=== PATIENT | female | born 1950 | race Caucasian/White ===

== ENCOUNTER 2016-04-13 14:25 | Emergency (ER) | payer BC, MEDICARE ==
[~2016-04-13] VITALS: Ht 160 cm; Wt 71.0 kg
[~2016-04-13 14:25] MED LIST: ASPI81TA81; METF500T PO; METO25TA3 PO; MONT10TA2 PO; NORC5TAB PO; PREV30CA11 PO; TRIA1SPR6 EACH NARE; ZOFR4TAB3 SL
[2016-04-13 14:38] VITALS: BP 168/82; PULSE 81; RESP 16; TEMP 98.5; O2SAT 98
[2016-04-13] MEDS ORDERED: METF500T4 PO (14:54)
[2016-04-13] MEDS ORDERED: BENZ100 PO (15:22)
--- NOTE | 2016-04-13 15:23 | PD ---
HPI Chief Complaint: Cold / Flu Symptoms Time Seen by Provider: 15:05 Travel History International Travel<30 days: No Contact w/Intl Traveler<30days: No Traveled to known affect area: No History of Present Illness HPI Patient is a 66-year-old female who presents emergency Department evaluation of cough, congestion. Patient states her symptoms started on , at that time there accompanied by body aches and chills. She states that she feels 50% better than she did when her symptoms started. She reports that the cough continues. She denies any recent tobacco use, diagnosis of COPD. Patient is diabetic. She denies any shortness breath, chest pain, headaches, fevers or nausea, vomiting. PFSH Past Medical History Hx Anticoagulant Therapy: Yes (325 ASA) Arthritis: Yes Atrial Fibrillation: Yes (INTERMITANT) Anxiety: No Depression: Yes Heart Rhythm Problems: Yes (see above has a loop recorder) Cancer: No Cardiac Catheterization: No High Cholesterol: Yes Chemotherapy: No Chest Pain: Yes Congestive Heart Failure: No Cerebrovascular Accident: No Diabetes: Yes Patient Takes Glucophage: Yes Diminished Hearing: No Fibromyalgia: Yes GERD: Yes Genitourinary: Yes Headaches: Yes Hiatal Hernia: No Implanted Vascular Access Dvce: Yes Kidney Stones: Yes Psychiatric: No Reproductive: No Respiratory: No Immunizations Current: Yes Migraines: Yes Radiation Therapy: No Renal Failure: No Thyroid Disease: No Ulcer: No Tetanus Vaccination: Unknown Influenza Vaccination: Yes ?: Not Menopausal: Yes Past Surgical History AICD: No Arteriovenous Shunt: No Body Medical Devices: LOOP RECORDER Cardiac Surgery: Yes (LOOP RECORDER,paratod tumor removed) Cholecystectomy: Yes Coronary Artery Bypass Graft: No Endocrine Surgery: Yes (gallbladder removed) Genitourinary Surgery: Yes (tonsilectomy) Gynecologic Surgery: Yes (hysterectomy) Hysterectomy: Yes Insulin Pump: No Joint Replacement: No Pacemaker: No Tonsillectomy: Yes Other Surgery: Yes (Parotid tumor removal, BIRTHMARK REMOVED LEFT LEG) Social History Alcohol Use: No Tobacco Use: No (1995) Substance Use: No Allergies-Medications (Allergen,Severity, Reaction): Coded Allergies: Biaxin (Verified Allergy, Intermediate, rash, tachycardia, 04/13/16) Levaquin (Verified Allergy, Intermediate, 04/13/16) muscle pain Naprosyn (Verified Allergy, Unknown, 04/13/16) Penicillin (Verified Allergy, Unknown, 04/13/16) Doxycycline (Verified Adverse Reaction, Severe, Body pain, 04/13/16) Dilaudid (Verified Adverse Reaction, Intermediate, ACUTE HEARING LOSS, 04/13) Uncoded Allergies: ceftin (Allergy, Unknown, 11/01/14) Reported Meds & Prescriptions Reported Meds & Active Scripts Active [place] (Hydrocodone-Acetaminophen) 5-325 mg Tab 1 Tab PO Q6H PRN Reported Metformin ER (Metformin HCl) 500 Mg Jojo 500 Mg PO HS With evening meal Nasacort Allergy 24Hr Nasal (Triamcinolone Nasal) 55 Mcg/Act Spr 2 [place] EACH NARE DAILY Aspir-81 (Aspirin) 81 Mg Tabdr 325 DAILY Metoprolol Tartrate 25 Mg Tab 25 Mg PO DAILY Metformin (Metformin HCl) 500 Mg Tab 1,000 Mg PO AM With meals Prevacid (Lansoprazole) 30 Mg Capdr 30 Mg PO BID Physical Exam Narrative GENERAL: Well-nourished, well-developed patient. SKIN: Warm and dry. HEAD: Normocephalic. EYES: No scleral icterus. No injection or drainage. ENT: Mucosa pink and moist. No erythema or exudates. No uvular edema. No uvular , palatal, or tonsillar deviation. Airway patent. Nasal turbinates appear normal without nasal blood, purulent drainage or septal hematoma. Cobblestone appearance posterior pharynx. NECK: Supple, trachea midline. No JVD or lymphadenopathy. CARDIOVASCULAR: Regular rate and rhythm without murmurs, gallops, or rubs. RESPIRATORY: Breath sounds equal bilaterally. No accessory muscle use. No wheezing, rhonchi, or rales noted. No increased work of breathing, no nasal flaring, no retractions. GASTROINTESTINAL: Abdomen soft, non-tender, nondistended. MUSCULOSKELETAL: No cyanosis, or edema. BACK: Nontender without obvious deformity. No CVA tenderness. Data Data Last Documented VS Vital Signs Date Time Temp Pulse Resp B/P Pulse Ox O2 Delivery O2 Flow Rate FiO2 04/13/16 14:48 98 Room Air 04/13/16 14:38 98.5 81 16 168/82 [facility] Medical Decision Making Medical Screen Exam Complete: Yes Emergency Medical Condition: Yes Interpretation(s) Vital Signs Date Time Temp Pulse Resp B/P Pulse Ox O2 Delivery O2 Flow Rate FiO2 04/13/16 14:48 98 Room Air 04/13/16 14:38 98.5 81 16 168/82 98 Differential Diagnosis Bronchitis versus pneumonia versus upper respiratory infection versus other Narrative Course Patient's 66-year-old female who presents emergency for evaluation of cough, congestion. Symptoms have improved since the initiation 3 days ago. Physical examination appears most consistent with a viral upper respiratory infection. Patient is afebrile, well oxygenated on room air, and her vital signs are stable. She is encouraged to continue with symptomatic management. She was encouraged that she is already showing improvement and should feel better within the next 2-3 days. She was encouraged to follow-up with her primary doctor or return to emergency department for any new or worsening symptoms. Patient verbalized understanding of instructions. Patient stable for discharge. Diagnosis Primary Impression: Upper respiratory infection, viral Referrals: Brendan Oleary DO 3 days Patient Instructions: General Instructions, Upper Respiratory Infection (ED) Additional Instructions: Follow-up with your primary doctor Continue symptomatic management Return to emergency department for any new or worsening symptoms Med/Other Pt SpecificInfo: Prescription(s) given Scripts Benzonatate (Tessalon Perles)100 Mg [id number] Mg PO TID PRN (COUGH) #15 CAP Ref 0 Prov:Christine Mancilla 04/13/16 Disposition: 01 DISCHARGE HOME Condition: Stable Christine Mancilla Apr 13, 2016 15:22
== END 2016-04-13 15:35 | disposition home or self-care (01) ==
LOC: PHEFT 14:25
DX: J06.9 Acute upper respiratory infection, unspecified (principal); I48.91 Unspecified atrial fibrillation; E78.00 Pure hypercholesterolemia, unspecified; E11.9 Type 2 diabetes mellitus without complications; M79.7 Fibromyalgia; K21.9 Gastro-esophageal reflux disease without esophagitis; Z87.442 Personal history of urinary calculi; Z79.01 Long term (current) use of anticoagulants
CPT/HCPCS: 99283

== ENCOUNTER 2016-08-02 20:03 | Emergency (ER) | payer MEDICARE, OTHER ==
[~2016-08-02] VITALS: Ht 160 cm; Wt 71.2 kg
[~2016-08-02 20:03] MED LIST changes: +BENZ100 PO; +METF500T4 PO; -MONT10TA2 PO; -ZOFR4TAB3 SL
[2016-08-02 20:14] VITALS: BP 143/71; PULSE 76; RESP 14; TEMP 98; O2SAT 98
[2016-08-02] MEDS ORDERED: ROSU5 PO (20:32)
[2016-08-02] MEDS ORDERED: CLAR10CA3 PO (20:32)
[2016-08-02] MEDS ORDERED: SULF1SOL4 RIGHT EYE (20:40)
--- NOTE | 2016-08-02 20:43 | PD ---
HPI Chief Complaint: Eye Problems/Injury Time Seen by Provider: 18:20 Travel History International Travel<30 days: No Contact w/Intl Traveler<30days: No Traveled to known affect area: No History of Present Illness HPI 66-year-old woman presents to the emergency department with right eye redness and irritation for 1 day. She reports she just come back from visiting her grandchildren who had pinkeye and she believes she contracted it. She reports mild right eye irritation, blurred vision with tearing, and crusting at eyelashes. She denies eye pain, vision loss, flashes or floaters. She denies trauma to the eye. PFSH Past Medical History Hx Anticoagulant Therapy: Yes (325 ASA) Arthritis: Yes Atrial Fibrillation: Yes (INTERMITANT) Anxiety: No Depression: Yes Heart Rhythm Problems: Yes (see above has a loop recorder) Cancer: No Cardiac Catheterization: No High Cholesterol: Yes Chemotherapy: No Chest Pain: Yes Congestive Heart Failure: No Cerebrovascular Accident: No Diabetes: Yes Diminished Hearing: No Fibromyalgia: Yes GERD: Yes Genitourinary: Yes Headaches: Yes Hiatal Hernia: No Implanted Vascular Access Dvce: Yes Kidney Stones: Yes Psychiatric: No Reproductive: No Respiratory: No Immunizations Current: Yes Migraines: Yes Radiation Therapy: No Renal Failure: No Thyroid Disease: No Ulcer: No Menopausal: Yes Past Surgical History AICD: No Arteriovenous Shunt: No Body Medical Devices: LOOP RECORDER Cardiac Surgery: Yes (LOOP RECORDER,paratod tumor removed) Cholecystectomy: Yes Coronary Artery Bypass Graft: No Endocrine Surgery: Yes (gallbladder removed) Genitourinary Surgery: Yes (tonsilectomy) Gynecologic Surgery: Yes (hysterectomy) Hysterectomy: Yes Insulin Pump: No Joint Replacement: No Pacemaker: No Tonsillectomy: Yes Other Surgery: Yes (Parotid tumor removal, BIRTHMARK REMOVED LEFT LEG) Social History Alcohol Use: No Tobacco Use: No (1995) Substance Use: No Allergies-Medications (Allergen,Severity, Reaction): Coded Allergies: Biaxin (Verified Allergy, Intermediate, rash, tachycardia, 08/02/16) Levaquin (Verified Allergy, Intermediate, 08/02/16) muscle pain Naprosyn (Verified Allergy, Unknown, 08/02/16) Penicillin (Verified Allergy, Unknown, 08/02/16) Doxycycline (Verified Adverse Reaction, Severe, Body pain, 08/02/16) Dilaudid (Verified Adverse Reaction, Intermediate, ACUTE HEARING LOSS, ) Uncoded Allergies: ceftin (Allergy, Unknown, 11/01/14) Reported Meds & Prescriptions Reported Meds & Active Scripts Active Tessalon Perles (Benzonatate) 100 Mg Cap 200 Mg PO TID PRN [place] (Hydrocodone-Acetaminophen) 5-325 mg Tab 1 Tab PO Q6H PRN Reported Metformin ER (Metformin HCl) 500 Mg Jojo 500 Mg PO HS With evening meal Nasacort Allergy 24Hr Nasal (Triamcinolone Nasal) 55 Mcg/Act Spr 2 [place] EACH NARE DAILY Aspir-81 (Aspirin) 81 Mg Tabdr 325 DAILY Metoprolol Tartrate 25 Mg Tab 25 Mg PO DAILY Metformin (Metformin HCl) 500 Mg Tab 1,000 Mg PO AM With meals Prevacid (Lansoprazole) 30 Mg Capdr 30 Mg PO BID Review of Systems Except as stated in HPI: all other systems reviewed are Neg Physical Exam Narrative GENERAL: [Alert, well-nourished female. In no acute distress] SKIN: Focused skin assessment warm/dry. No rashes HEAD: Atraumatic. Normocephalic. EYES: No eyelid swelling or erythema. Cornea clear. Pupils equal and round. No scleral icterus. EOMs intact. Normal visual acuity. Right eye injection with mucopurulent drainage and crusting eyelashes. ENT: No nasal bleeding or discharge. Mucous membranes pink and moist. CARDIOVASCULAR: Regular rate and rhythm. No murmur appreciated. RESPIRATORY: No accessory muscle use. Clear to auscultation. Breath sounds equal bilaterally. GASTROINTESTINAL: Abdomen soft, non-tender, nondistended. MUSCULOSKELETAL: No obvious deformities. No clubbing. No cyanosis. No edema. NEUROLOGICAL: Awake and alert. No obvious cranial nerve deficits. Motor grossly within normal limits. Normal speech. PSYCHIATRIC: Appropriate mood and affect; insight and judgment normal. Data Data Last Documented VS Vital Signs Date Time Temp Pulse Resp B/P Pulse Ox O2 Delivery O2 Flow Rate FiO2 08/02/16 20:24 08/02/16 20:14 98.0 76 14 98 Room Air MDM Medical Decision Making Medical Screen Exam Complete: Yes Emergency Medical Condition: Yes Medical Record Reviewed: Yes Differential Diagnosis Bacterial conjunctivitis, viral conjunctivitis, allergic conjunctivitis Narrative Course 66-year-old female presents emergency Department with right eye irritation and drainage 1 day. Patient reports she recently got back from visiting with her grandchildren who had elizabethe. Patient denies any vision loss, eye pain, flashes or floaters. She denies trauma to the eye. Patient's physical exam is consistent with conjunctivitis. Patient will be given a prescription for Bleph- 10 and instructed to follow-up with luggage liner for PCP for recheck if symptoms fail to improve 2 days. Diagnosis Primary Impression: Conjunctivitis Qualified Code: H10.31 - Acute conjunctivitis of right eye, unspecified acute conjunctivitis type Referrals: [employer] Patient Instructions: Conjunctivitis (ED), General Instructions Scripts Sulfacetamide Opth Drops (Bleph-10 Opth Drops)10 % Soln1 Drop RIGHT EYE QID #1 BOTTLE Ref 0 Prov:Love Evans 08/02/16 Disposition: 01 DISCHARGE HOME Condition: Stable Love Evans August 02, 2016 20:43
[2016-08-03] MEDS ORDERED: CIPR0.3S2 RIGHT EYE (02:08)
== END 2016-08-02 20:50 | disposition home or self-care (01) ==
LOC: PHEFT 20:03
DX: H10.31 Unspecified acute conjunctivitis, right eye (principal); E78.00 Pure hypercholesterolemia, unspecified; M79.7 Fibromyalgia; I48.91 Unspecified atrial fibrillation; F32.9 Major depressive disorder, single episode, unspecified; Z87.442 Personal history of urinary calculi; Z95.818 Presence of other cardiac implants and grafts; Z79.82 Long term (current) use of aspirin
CPT/HCPCS: 99283

== ENCOUNTER 2016-08-03 00:51 | Emergency (ER) | payer MEDICARE, OTHER ==
[~2016-08-03] VITALS: Ht 160 cm; Wt 71.0 kg
[~2016-08-03 00:51] MED LIST changes: -BENZ100 PO; +CLAR10CA3 PO; -NORC5TAB PO; +ROSU5 PO; +SULF1SOL4 RIGHT EYE
[2016-08-03 01:01] VITALS: BP 170/90; PULSE 90; RESP 18; TEMP 97.6; O2SAT 100
[2016-08-03 01:55] VITALS: BP 170/90; PULSE 90; RESP 18; TEMP 97.6; O2SAT 100
[2016-08-03] MEDS ORDERED: CIPR0.3S2 RIGHT EYE (02:08)
--- NOTE | 2016-08-03 02:53 | PD ---
HPI Chief Complaint: Eye Problems/Injury Time Seen by Provider: 02:34 Travel History International Travel<30 days: No Contact w/Intl Traveler<30days: No Traveled to known affect area: No History of Present Illness HPI The patient is a 66-year-old female that had conjunctivitis beginning Thursday. The conjunctivitis got worse in the right eye and she was given Cipro several hours ago. The emergency department. The eye was getting worse before she put the Cipro ophthalmologic drops in. She comes in because her right eye is getting worse. She used one dose of Cipro so far. She denies any fever for an body sensation. The patient lists Levaquin as an allergy but she gets severe joint pain when she takes Levaquin, it is not a true allergy. PFSH Past Medical History Hx Anticoagulant Therapy: Yes (325 ASA) Arthritis: Yes Atrial Fibrillation: Yes (INTERMITANT) Anxiety: No Depression: Yes Heart Rhythm Problems: Yes (see above has a loop recorder) Cancer: No Cardiac Catheterization: No Cardiovascular Problems: Yes High Cholesterol: Yes Chemotherapy: No Chest Pain: Yes Congestive Heart Failure: No Cerebrovascular Accident: No Diabetes: Yes Patient Takes Glucophage: Yes Diminished Hearing: No Fibromyalgia: Yes Gastrointestinal Disorders: Yes GERD: Yes Genitourinary: Yes Headaches: Yes Hiatal Hernia: No Implanted Vascular Access Dvce: Yes Kidney Stones: Yes Psychiatric: No Reproductive: No Respiratory: No Immunizations Current: Yes Migraines: Yes Radiation Therapy: No Renal Failure: No Thyroid Disease: No Ulcer: No Tetanus Vaccination: Unknown Influenza Vaccination: Yes ?: Not Menopausal: Yes Past Surgical History AICD: No Arteriovenous Shunt: No Body Medical Devices: LOOP RECORDER Cardiac Surgery: Yes (LOOP RECORDER,paratod tumor removed) Cholecystectomy: Yes Coronary Artery Bypass Graft: No Endocrine Surgery: Yes (gallbladder removed) Genitourinary Surgery: Yes (tonsilectomy) Gynecologic Surgery: Yes (hysterectomy) Hysterectomy: Yes (partial) Insulin Pump: No Joint Replacement: No Pacemaker: No Tonsillectomy: Yes Other Surgery: Yes (Parotid tumor removal, BIRTHMARK REMOVED LEFT LEG) Social History Alcohol Use: No Tobacco Use: No (1995) Substance Use: No Allergies-Medications (Allergen,Severity, Reaction): Coded Allergies: Biaxin (Verified Allergy, Intermediate, rash, tachycardia, 08/03/16) Levaquin (Verified Allergy, Intermediate, 08/03/16) muscle pain Naprosyn (Verified Allergy, Unknown, 08/03/16) Penicillin (Verified Allergy, Unknown, 08/03/16) Doxycycline (Verified Adverse Reaction, Severe, Body pain, 08/03/16) Dilaudid (Verified Adverse Reaction, Intermediate, ACUTE HEARING LOSS, ) Uncoded Allergies: ceftin (Allergy, Unknown, 11/01/14) Reported Meds & Prescriptions Reported Meds & Active Scripts Active Reported Ciprofloxacin Opth Drops (Ciprofloxacin HCl) 0.3% Soln 2 Drop RIGHT EYE Q4H while awake x 5 days. Crestor (Rosuvastatin Calcium) 5 Mg Tab 5 Mg PO DAILY Claritin (Loratadine) 10 Mg Cap 10 Mg PO DAILY Metformin ER (Metformin HCl) 500 Mg Jojo 500 Mg PO HS With evening meal Nasacort Allergy 24Hr Nasal (Triamcinolone Nasal) 55 Mcg/Act Spr 2 [place] EACH NARE DAILY Aspir-81 (Aspirin) 81 Mg Tabdr 325 DAILY Metoprolol Tartrate 25 Mg Tab 25 Mg PO DAILY Metformin (Metformin HCl) 500 Mg Tab 1,000 Mg PO AM With meals Prevacid (Lansoprazole) 30 Mg Capdr 30 Mg PO BID Review of Systems Except as stated in HPI: all other systems reviewed are Neg Physical Exam Narrative GENERAL: The patient is alert, oriented 3 in moderate apparent distress with her right eye discomfort. Her vital signs show blood pressure 170/90 but otherwise normal. SKIN: Focused skin assessment warm/dry. HEAD: Atraumatic. Normocephalic. EYES: Pupils equal and round. No scleral icterus. The left eye shows No injection or drainage. Visual acuity is 20/40 in the right eye and 20/40 in the left eye. The right eye shows considerable conjunctivitis and clear drainage. No corneal abrasion is seen. No corneal erosion is seen. No foreign body is noted. ENT: No nasal bleeding or discharge. Mucous membranes pink and moist. NECK: Trachea midline. No JVD. CARDIOVASCULAR: Regular rate and rhythm. No murmur appreciated. RESPIRATORY: No accessory muscle use. Clear to auscultation. Breath sounds equal bilaterally. GASTROINTESTINAL: Abdomen soft, non-tender, nondistended. Hepatic and splenic margins not palpable. MUSCULOSKELETAL: No obvious deformities. No clubbing. No cyanosis. No edema. NEUROLOGICAL: Awake and alert. No obvious cranial nerve deficits. Motor grossly within normal limits. Normal speech. PSYCHIATRIC: Appropriate mood and affect; insight and judgment normal. Data Data Last Documented VS Vital Signs Date Time Temp Pulse Resp B/P Pulse Ox O2 Delivery O2 Flow Rate FiO2 08/03/16 01:57 90 18 08/03/16 01:55 97.6 170/90 100 08/03/16 01:01 Room Air MDM Medical Decision Making Medical Screen Exam Complete: Yes Emergency Medical Condition: Yes Medical Record Reviewed: Yes Differential Diagnosis Viral conjunctivitis, bacterial conjunctivitis, allergic conjunctivitis, chemical conjunctivitis, foreign body eye, Narrative Course The patient has conjunctivitis in her right eye. This may be viral or bacterial but it is unlikely to be allergic or chemical related. She states the eye was clearly getting worse before she put in the Cipro drops so this is unlikely to be a Cipro allergy. She apparently does not have a true Levaquin allergy. Plan: The patient should use warm compresses every 4 hours followed by Cipro drops. She should call an jet inspector Thursday. Diagnosis Primary Impression: Conjunctivitis Additional Instructions: As we discussed, use the warm compresses every 4 hours and then put one or 2 Cipro drops and your right eye. Follow-up with an jet inspector on Thursday. Med/Other Pt SpecificInfo: No Change to Meds Disposition: DISCHARGE HOME Condition: Stable Cameron Tarango MD August 03, 2016 02:53
== END 2016-08-03 03:02 | disposition home or self-care (01) ==
LOC: PHED 00:51
DX: H10.31 Unspecified acute conjunctivitis, right eye (principal); I48.91 Unspecified atrial fibrillation; E78.00 Pure hypercholesterolemia, unspecified; E11.9 Type 2 diabetes mellitus without complications; Z87.442 Personal history of urinary calculi; Z79.84 Long term (current) use of oral hypoglycemic drugs; Z95.818 Presence of other cardiac implants and grafts; Z79.82 Long term (current) use of aspirin
CPT/HCPCS: 99282